=== PATIENT | female | born 1990 | race Caucasian/White ===

== ENCOUNTER 2016-08-20 10:01 | Inpatient (IN) ==
--- NOTE | 2016-08-20 10:03 | Pulmonology History & Physical ---
History of Present Illness Chief complaint: shortness of breath chest tightness severe cough outpatient tx failure History of present illness: RED De La Cruz acting as scribe for Dr. Vinny Levy. Ms. Lyles is a 26 year old /White female who was seen initially at [facility] [place] on 08/19/16 for shortness of breath, cough, severe chest tightness and congestion with inability to produce sputum, sore throat, nausea, decreased appetite, and weakness. She has been treated for influenza approximately 2 weeks ago and currently is taking Augmentin for acute sinusitis at this time. Her chest tightness and other symptoms started approximately 2-3 days before she was seen in our office. She was given IV infusion of 1L NS and 1GM Rocephin in the clinic along with a Duoneb and 0.1mg Epinephrine subq due to intractable cough due to bronchospasm shortness of breath and chest tightness. Labs and XR done in office were reviewed by lab results were unreliable due to being hemolyzed from her dehydration. Started on PO Azithromycin, Keflex, Prednisone, Singulair, Mucinex, and Tessalon Perles for cough along with Duoneb treatments PRN. We did not give steroid injection in the clinic due to nervousness and side effect from Duoneb and Epinephrine. She was instructed that if no improvement to RTC today 08/20/16 for reevaluation. She presented to clinic this morning still with chest tightness shortness of breath and cough due to bronchospasm. Cough is dry nonproductive unable to cough up sputum. Admits she had some chest pains last night not sure if due to cough or not. She did have all of her medications this morning. Duonebs feel like they open her up some but do not last long maybe a few minutes. We gave her a steroid injection in the clinic and another 0.1mg Epinephrine and still had bronchospasm and decreased air movement after these injections. She was very tearful and anxious due to condition and not improving very concerned about her breathing. Due to the severity of bronchospasm shortness of breath cough and chest tightness along with failure of multiple outpatient treatment methods decision was made to admit to inpatient for further evaluation and treatment. This was discussed with the patient and she agrees with this plan. ALLERGIES: LORTAB ROS: All other ROS noncontributory Home Medications: Other than stated above that was started on 08/19/16 she only takes home Zyrtec OTC. Past Medical History: Kidney stones, history of GERD had EGD done by Dr. Hurley in 2008 he was suspicious of Radha Garvin tear but on EGD no evidence of tear or GI bleed but did have some esophagitis with evidence of reflux, history of anxiety mostly exacerbated by job related stress last treated by Dr. Chance in 2010 not requiring treatment since then. Past Surgical History: EGD as above in [address] Hurley, 2 c-sections. Family History: Arthritis, asthma, kidney stones, defects, breast cancer, and colon polyps. 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 Chest XR at [facility] [place]/19/16 Reviewed there are increased interstitial markings bilateraly probable early left lower lung infiltrate. Labs are pending EKG pending. Allergies Allergy/AdvReac Type Severity Reaction Status Date / Time hydrocodone [From Lortab] AdvReac Vomiting Verified 08/20/16 12:27 Exam (Pulmonay) H&P - Constitutional Exam: Exam: Psych: Oriented x 3; Tearful and anxious. Acutely ill appearing. HEENT: Pupils, irises, sclera, conjunctiva, and eyelids are normal. The face is symmetrical. Lips, tongue, buccal mucosa, soft and hard palates, and phayrnx are WNL Neck: Symmetrical. Thyroid was not palpated. Lymphatics: No submandibular, cervical, or supraclavicular adenopathy Chest: Symmetrical with restricted air movement in the periphery faint/vague large airway wheeze on expiration. Severe cough with deep breathing. Breasts: Deferred CV: Regular without murmur, rub or gallop. Arterial: Carotids with a good upstroke. There is no bruit. Upper extremity pulses are palpable. Lower extremity pulses are palpable. Venous: Exam of the neck, upper, and lower extremities is normal Abd: No appreciable organomegaly, masses, tenderness, or bruit; Bowel sounds are positive x 4; The aorta was not palpated /Rectal: Deferred Extremities: No clubbing, cyanosis, or obvious DVT; no significant edema Skin: No cancerous or infectious lesions of the exposed, examined skin; the perineal area was not examined M/S: Age appropriate loss of the normal curvature of the cervical, thoracic, and lumbar spine. Neurological: Cranial nerves are intact, Long tract motor function is intact; Sensory exam was not done; gait was not tested. The remainder of the exam was noncontributory. Impression: #1 Acute bronchitis with bronchospasm #2 Severe shortness of breath and chest tightness #3 Cough related to bronchospasms #4 Early left lower lobe pneumonia, refractory to outpatient treatment #5 History of GERD not on treatment #6 See past history Plan #1 Admit for further evaluation and treatment #2 IV abx due to outpatient treatment failure #3 Inhalation therapy with duonebs QID and PRN #4 CXR, labs and EKG as ordered #5 PPI for management of GERD #6 See orders
[2016-08-20] MEDS ORDERED: ALBUTEROL/IPRATROPIUM 3 ML NEB RESP TX PRN (10:28)
[2016-08-20] MEDS ORDERED: DOCUSATE SODIUM 100 MG CAPSULE PO PRN (10:28)
[2016-08-20] MEDS ORDERED: LACTULOSE 20 GM/30 ML UDCUP PO PRN (10:28)
[2016-08-20] MEDS ORDERED: EPINEPHrine 1 MG/ML VIAL SUBCUT PRN (10:32)
--- NOTE | 2016-08-20 12:51 | EKG Report ---
Stationary ECG Study [facility] Test Date: 08/20/2016 12:51 PM Pat Name: FRANCESCO TIRADO Department: Room: 534 Gender: F Supervisor Last Model Department: : 1990 Requested by: Jason Parker Order Number: [id number] Julien MD: NEHA BHAT Intervals [place] Rate: 57 P: 86 VT: 123 QRS: 78 QRSD: 85 T: 30 QT: 368 QTc: 362 Interpretive Statements (DR RAMÍREZ STEPHENSON TO INTERP) SINUS RHYTHM Electronically Signed On 08-22-16 17:29:01 WORKFOR[employer] DEVELOPMENT SPECIALIST by NEHA BHAT [email or web address]
--- NOTE | 2016-08-20 13:42 | XRay Report ---
XR chest 2V Date: 08/20/2016 10:30 AM History: Shortness of breath Comparison: 05/09/2014 Technique: PA and lateral chest Findings: The heart is normal in size. The lungs appear minimally hyperexpanded with no infiltration. Unremarkable mediastinum and osseous structures. Impression: The lungs are overexpanded which can be seen with deep inspiration or reactive airway disease. PROCEDURE INTERPRETED AT [facility] DEPARTMENT OF RADIOLOGY Final Report Signed by: Dr. Ronda Javed
[2016-08-20] MEDS: ALBUTEROL/IPRATROPIUM 3 ML NEB RESP TX SCH ×2 (13:53→19:24)
[2016-08-20] MEDS: BENZONATATE 100 MG CAPSULE PO SCH ×2 (14:00→20:36)
[2016-08-20] MEDS: PANTOPRAZOLE 40 MG TABLET PO SCH (14:00)
[2016-08-20 14:21] LABS: Basophils % 0.1 % (0.0-0.8); Hematocrit 41.4 VOL% (35.7-47.0); Hemoglobin 14.7 GM/DL (12.0-16.0); Immature Granulocytes % 0.4 %; Immature Granulocytes Absolute 0.04 #; Lymphocytes # 0.8 10*3/uL (1.4-4.0); Lymphocytes % 8.5 % (21.3-54.2); Mean Corpuscular HGB Conc 35.5 GM/DL (32-36); Mean Corpuscular Hemoglobin 30 PG (27-34); Mean Corpuscular Volume 85.2 FL (87-102); Mean Platelet Volume 10.9 FL (9.6-12.0); Monocytes # 0.1 10*3/uL (0.11-0.8); Monocytes % 1.2 % (1.7-12.7); Neutrophils # 8.7 10*3/uL (1.4-7.4); Neutrophils % 89.8 % (38.7-73.9); Platelet Count 214 T/CUMM (130-400); Red Blood Count 4.86 MC/CUMM (3.8-5.5); Red Cell Distribution Width 11.5 % (9.3-17.3); White Blood Count 9.7 T/CUMM (4-12)
[2016-08-20] MEDS: DEXTROSE 5% NACL 0.45% 1,000 ML IV SCH (14:45)
[2016-08-20 14:49] LABS: Albumin 4.8 G/DL (3.4-5.0); Bilirubin,Total 0.7 MG/DL (0.2-1.0); Calcium 9.8 MG/DL (8.5-10.1); Magnesium 2.1 MG/DL (1.8-2.4); Osmolality,Calculated 282.1 MOS/KG (273-304); Potassium 4.7 MMOL/L (3.5-5.1); Thyroid Stimulating Hormone 0.342 uIU/ml (0.358-3.74); Total Protein 7.9 G/DL (6.4-8.3)
[2016-08-20] MEDS: MEROPENEM 1,000 MG in SODIUM CHLORIDE 0.9% 100 ML IV SCH ×2 (15:30→23:54)
[2016-08-20] MEDS ORDERED: CLORAZEPATE 3.75 MG TABLET PO PRN (16:43)
[2016-08-20 19:11] LABS: Apearance,Urine CLEAR (Clear); Bilirubin,Urine Negative (Negative); Blood, Urine Negative (Negative); Glucose,Urine (UA) Negative (Negative); Ketones,Urine Negative (Negative); Nitrite,Urine Negative (Negative); Protein,Urine Negative; RBC,Urine 1 /HPF (0-4); Squamous Epithelial Cell,Urine Occasional /HPF (0-10); Urine Color Yellow (Yellow); Urine Specific Gravity 1.013 (1.001-1.035); Urine Urobilinogen < 2.0 EU/DL (0.2-1.0); WBC,Urine 1 /HPF (0-6)
[2016-08-20] MEDS: DORNASE ALFA 2.5 MG/2.5 ML VIAL RESP TX SCH (19:24)
[2016-08-20] MEDS: ZALEPLON 5 MG CAPSULE PO PRN (23:58)
[2016-08-21] MEDS: ALBUTEROL/IPRATROPIUM 3 ML NEB RESP TX SCH ×4 (00:26→19:19)
[2016-08-21 05:04] LABS: Basophils % 0.2 % (0.0-0.8); Eosinophils % 0.1 % (0.00-10.9); Hematocrit 33.3 VOL% (35.7-47.0); Immature Granulocytes % 0.9 %; Immature Granulocytes Absolute 0.09 #; Lymphocytes # 2.6 10*3/uL (1.4-4.0); Lymphocytes % 24.9 % (21.3-54.2); Mean Corpuscular Hemoglobin 31 PG (27-34); Mean Corpuscular Volume 85.8 FL (87-102); Monocytes # 0.6 10*3/uL (0.11-0.8); Monocytes % 6.1 % (1.7-12.7); Neutrophils % 67.8 % (38.7-73.9); Platelet Count 175 T/CUMM (130-400); Red Blood Count 3.88 MC/CUMM (3.8-5.5); Red Cell Distribution Width 11.6 % (9.3-17.3); White Blood Count 10.3 T/CUMM (4-12)
[2016-08-21 05:38] LABS: Calcium 8.8 MG/DL (8.5-10.1); Magnesium 2.1 MG/DL (1.8-2.4); Osmolality,Calculated 289.7 MOS/KG (273-304)
[2016-08-21] MEDS: DORNASE ALFA 2.5 MG/2.5 ML VIAL RESP TX SCH ×2 (07:39→19:19)
[2016-08-21] MEDS: methylPREDNISolone SOD SUC 40 MG/1 ML VIAL IV SCH (08:04)
[2016-08-21] MEDS: MEROPENEM 1,000 MG in SODIUM CHLORIDE 0.9% 100 ML IV SCH ×3 (08:06→23:24)
[2016-08-21] MEDS: MONTELUKAST 10 MG TABLET PO SCH (08:08)
[2016-08-21] MEDS: PANTOPRAZOLE 40 MG TABLET PO SCH (08:08)
[2016-08-21] MEDS: CETIRIZINE 10 MG TABLET PO SCH (08:08)
[2016-08-21] MEDS: BENZONATATE 100 MG CAPSULE PO SCH ×3 (08:08→21:31)
--- NOTE | 2016-08-21 13:32 | Pulmonology Progress Note ---
Pulmonary - PN: Subj Interval history: This 26-year-old white female was admitted from Dr. Levy's office yesterday with an exacerbation of asthma. She does not have any previous history of asthma. She was felt to have acute asthmatic bronchitis. She is on intravenous steroids and nebulized bronchodilators as well as getting antibiotics. This morning she is feeling better. She still coughing and clearing her throat. Room air O2 sat is 100%. Will start reducing her steroids. Exam (Progress Note) - Constitutional Vitals: Period Temp Pulse Resp BP Sys/Grimes Pulse Ox Last 24 Hr 97.4 F-99.9 F 59-92 16-19 98-110/54-61 92-100 Exam: Patient's alert oriented anxious. Vital signs normal. Pupils react to light. Throat is clear. Neck supple no bruits. Chest shows prolonged expiratory phase but no active wheezing. Heart normal rate and rhythm no murmurs. Abdomen soft no masses. Extremities no clubbing cyanosis edema. Calves nontender. Results - Labs CBC & BMP: 08/21/16 04:15 08/21/16 04:15 Lab Results: I have reviewed the past 24 hour labs - Diagnostic Findings Procedure: Chest x-ray: image reviewed by me (Lungs are clear) Assessment and Plan (1) Bronchitis with bronchospasm Status: Acute Assessment and plan: It appears that she has acute asthmatic bronchitis. She does not have a history of asthma in the past. It remains to be seen whether she has chronic problems with this. She is improved today. Will reduce her steroids. She does have a good bit of throat clearing. Current Visit: Yes
[2016-08-21] MEDS: DEXTROSE 5% NACL 0.45% 1,000 ML IV SCH (14:09)
[2016-08-21] MEDS: ZALEPLON 5 MG CAPSULE PO PRN (21:31)
[2016-08-22] MEDS: ALBUTEROL/IPRATROPIUM 3 ML NEB RESP TX SCH ×4 (00:01→20:48)
[2016-08-22] MEDS: DEXTROSE 5% NACL 0.45% 1,000 ML IV SCH ×2 (02:55→15:30)
[2016-08-22] MEDS: MEROPENEM 1,000 MG in SODIUM CHLORIDE 0.9% 100 ML IV SCH ×3 (06:52→23:59)
[2016-08-22] MEDS: DORNASE ALFA 2.5 MG/2.5 ML VIAL RESP TX SCH ×2 (08:08→20:55)
[2016-08-22] MEDS: PANTOPRAZOLE 40 MG TABLET PO SCH (08:29)
[2016-08-22] MEDS: BENZONATATE 100 MG CAPSULE PO SCH ×3 (08:29→20:40)
[2016-08-22] MEDS: methylPREDNISolone SOD SUC 40 MG/1 ML VIAL IV SCH (08:29)
[2016-08-22] MEDS: MONTELUKAST 10 MG TABLET PO SCH (08:29)
[2016-08-22] MEDS: CETIRIZINE 10 MG TABLET PO SCH (08:31)
--- NOTE | 2016-08-22 11:27 | Pulmonology Progress Note ---
Pulmonary - PN: Subj Interval history: This 26-year-old white female was admitted from Dr. Levy's office yesterday with an exacerbation of asthma. She does not have any previous history of asthma. She was felt to have acute asthmatic bronchitis. She is on intravenous steroids and nebulized bronchodilators as well as getting antibiotics. This morning she is feeling better. She still coughing and clearing her throat. Room air O2 sat is 100%. Will start reducing her steroids. 08/22/2016 patient feeling much better. She is only on 20 mg a day of Solu- Medrol. Advised she will need to stay [address] Levy tomorrow to address long-term plans for her bronchospastic disease. This apparently is not a terminologist history. Exam (Progress Note) - Constitutional Vitals: Period Temp Pulse Resp BP Sys/Grimes Pulse Ox Last 24 Hr 97.3 F-98.4 F 60-84 16-20 104-122/59-68 98-100 Exam: Patient's alert oriented anxious. Vital signs normal. Pupils react to light. Throat is clear. Neck supple no bruits. Chest shows prolonged expiratory phase but no active wheezing. Heart normal rate and rhythm no murmurs. Abdomen soft no masses. Extremities no clubbing cyanosis edema. Calves nontender. Mental change from yesterday. Results - Labs CBC & BMP: 08/21/16 04:15 08/21/16 04:15 Lab Results: I have reviewed the past 24 hour labs Assessment and Plan (1) Bronchitis with bronchospasm Status: Acute Assessment and plan: It appears that she has acute asthmatic bronchitis. She does not have a history of asthma in the past. It remains to be seen whether she has chronic problems with this. She is improved today. Will reduce her steroids. She does have a good bit of throat clearing. 08/22/2016 we discussed yesterday whether or not she has asthma. She has not had recurrent episodes of this. This could be acute bronchitis or asthmatic bronchitis more likely. Current Visit: Yes
[2016-08-23] MEDS: ALBUTEROL/IPRATROPIUM 3 ML NEB RESP TX SCH ×2 (01:41→07:17)
[2016-08-23] MEDS: DORNASE ALFA 2.5 MG/2.5 ML VIAL RESP TX SCH (07:25)
[2016-08-23] MEDS: MEROPENEM 1,000 MG in SODIUM CHLORIDE 0.9% 100 ML IV SCH (07:38)
[2016-08-23] MEDS: PANTOPRAZOLE 40 MG TABLET PO SCH (08:10)
[2016-08-23] MEDS: BENZONATATE 100 MG CAPSULE PO SCH (08:10)
[2016-08-23] MEDS: MONTELUKAST 10 MG TABLET PO SCH (08:10)
[2016-08-23] MEDS: CETIRIZINE 10 MG TABLET PO SCH (08:10)
[2016-08-23] MEDS: methylPREDNISolone SOD SUC 40 MG/1 ML VIAL IV SCH (08:11)
--- NOTE | 2016-08-23 10:32 | Pulmonology Progress Note ---
Pulmonary - PN: Subj Interval history: Jason Parker, ANP-BC, GNP-BC, acting as scribe for Dr. Vinny Levy Mrs. Lyles was seen today along with Caterina Vizcarra RN. This is a 26 year old white female who was seen on two occasions last week by Caterina Latif NP, [place] [facility] [place] She was acutely short of breath with significant wheezing. Despite aggressive outpatient treatment she was an outpatient treatment failure. She was admitted and started on IV Solumedrol and antibiotics as well as inhalation therapy. Her CXR never showed an infiltrate and over time her shortness of breath and wheezing has resolved. She states she feels markedly better today. Medications have been reviewed. We will send her home with a prescription for Stiolto. We discussed this at length with her his morning. Labs have been reviewed. No new labs were drawn today. Exam (Progress Note) - Constitutional Vitals: Period Temp Pulse Resp BP Sys/Grimes Pulse Ox Last 24 Hr 98.0 F-98.6 F 61-85 18-20 99-127/47-74 97-100 Exam: Chest is wheeze free Heart no gallop Abd is nontender and nondistended; BS positive x 4 Ext with nothing to suggest acute DVT Psych oriented x 3 Neuro long tract motor function is intact Plan: She has now met maximum hospital benefit and will be discharged home. Please see the discharge note for more information. Results - Labs CBC & BMP: 08/21/16 04:15 08/21/16 04:15 Specialty Discharge - Follow Up or Referrals
--- NOTE | 2016-08-23 10:35 | Discharge Summary ---
Hospital Course - Hospital Course Hospital Course: Jason Parker, ANP-BC, GNP-BC, acting as scribe for Dr. Vinny Levy Mrs. Lyles is a 26 year old /White female who was seen initially at [facility] [place] on 08/19/16 for shortness of breath, cough, severe chest tightness and congestion with inability to produce sputum, sore throat, nausea, decreased appetite, and weakness. She had been treated for influenza approximately 2 weeks prior to admission and was taking Augmentin for acute sinusitis at the time of admission. Her chest tightness and other symptoms started approximately 2-3 days before she was seen in our office. She was given an IV infusion of 1L NS and 1GM Rocephin in the clinic along with a Duoneb and 0.1mg Epinephrine subq due to intractable cough secondary to bronchospasm shortness of breath and chest tightness. Labs and XR done in office were reviewed by lab results were unreliable due to being hemolyzed from her dehydration. She was started on PO Azithromycin, Keflex, Prednisone, Singulair, Mucinex, and Tessalon Perles for cough along with Duoneb treatments PRN. We did not give steroid injection in the clinic due to nervousness and side effect from Duoneb and Epinephrine. She was instructed that if no improvement to return to our clinic on 08/20/16 for reevaluation. She presented to clinic the morning of admission still with chest tightness, shortness of breath, and cough due to bronchospasm. The cough was dry and nonproductive. She was unable to cough up sputum. We gave her a steroid injection in the clinic and another 0.1mg Epinephrine, but she still had bronchospasm and decreased air movement after these injections. She was very tearful and anxious due to her condition and the fact that she was not improving. She was very concerned about her breathing. Due to the severity of the bronchospasm, shortness of breath, cough, and chest tightness along with failure of multiple outpatient treatment methods, the decision was made to admit to inpatient for further evaluation and treatment. She was admitted and started on IV Solumedrol and antibiotics as well as inhalation therapy. Her CXR never showed an infiltrate and over time her shortness of breath and wheezing has resolved. She states she feels markedly better today. Sputum for Gram stain, culture, and sensitivity was ordered at admission however, the patient never produced a sputum for testing. We are going to start Stiolto at discharge and will follow her up in our clinic in two weeks. Next, the patient has never had any respiratory issues and most likely suffered respiratory injury secondary to her recent influenza illness and sinusitis. Blood cultures are negative thus far. At the time of discharge, white count is 10,300 with 67.8% segs, 24.9% lymphs, and 6.1% monos; H&H 12.0/33.3 with Y normal indices and normal red blood cell distribution width; platelet count 175,000; creatinine 0.80, BUN 12, sodium 145 , potassium 4.0, magnesium 2.1; liver function tests within normal limits; calcium 8.8, albumin 4.8, total protein 7.9; TSH was low at 0.342 however free T4 was normal at 1.09; urinalysis showed no evidence of infection. For more information regarding Mrs. Lyles's past medical history, surgical history, family history, social history, admit labs, admit x-rays and admit exam , please see the admission note dated 08/20/2016. Impression: #1 Acute bronchitis with bronchospasm which have been refractory to outpatient treatment; resolved #2 Severe shortness of breath and chest tightness secondary to #1: Resolved #3 Cough related to bronchospasms; resolved #4 Early left lower lobe pneumonia suspected but not found #5 History of GERD #6 See past history Plan: Stiolto 2 puffs once a day, Tessalon 200 mg 3 times daily as needed cough , Zyrtec 10 mg daily, Mucinex 600 mg twice daily, Singulair 10 mg daily, Protonix 40 mg or Omeprazole 20 mg daily, and Prednisone 10 mg daily for 5 days then 10 mg every other day for 5 days. She will be scheduled to follow-up with Caterina Latif, nurse practitioner, in approximately 2 weeks. She can be seen sooner if needed. Specialty Discharge - Follow Up or Referrals Follow up with: Caterina Latif CFNP [Advanced Practice Nurse] - 2 Weeks Discharge Plan - Discharge Data Disposition: Disch To Home/Self Care Condition at Discharge: Stable Discharge Diet: regular diet Activity: resume usual activities as tolerated - Discharge Medications New Tiotropium Br/Olodaterol HCl [Stiolto Respimat Inhal [place]] 2.5 mcg IH DIRECTED #5 mist.inhal predniSONE TAB [PredniSONE] 10 mg PO DIRECTED #10 tablet Guaifenesin [Guaifenesin ER] 600 mg PO BID #60 tab.er.12h Pantoprazole Tab [Protonix Tab] 40 mg PO DAILY #30 tablet Continue Benzonatate [Tessalon] 200 mg PO TID PRN PRN Reason: Cough Montelukast Tab [Singulair Tab] 10 mg PO DAILY Cetirizine Tab [ZyrTEC Tab] 10 mg PO DAILY Discontinued Azithromycin Tab [Zithromax Tab] 250 mg PO DAILY guaiFENesin/DM ER 600-30 [Mucinex Dm 600-30 MG] 1 tablet PO BID cephALEXin [Keflex] 500 mg PO Q6HR - Follow Up or Referral - Forms/Instructions Instructions: Acute Bronchitis (DC), Bronchospasm (DC), Pneumonia (DC) Exam - Constitutional Vitals: Period Temp Pulse Resp BP Sys/Grimes Pulse Ox Last 24 Hr 98.0 F-98.6 F 61-85 18-20 99-127/47-74 97-100 Discharge Results Procedures and tests throughout hospitalization: Pending Orders 08/20/16 10:31 Sputum Culture and Gram Stain Routine 08/20/16 13:47 Blood Culture Routine Legionella Pneumophilia Ab Routine Labs on day of discharge: Preliminary micro results at discharge 08/20/16 13:47 Blood Culture - Preliminary Blood No growth at 1 day 08/20/16 13:47 Blood Culture - Preliminary Blood No growth at 1 day DS: Provider Date of admission: 08/20/16 12:04 Primary care physician: Vinny Levy MD Attending physician on admission: Vinny Levy MD Consults: 08/20/16 14:52 Consult to Dietitian [CONS] Routine Reason for Dietitian: Other Consult Comment: weight loss Discharging clinician: LEXII Colin
[2016-08-23 11:55] VITALS: BP 102/66
== END 2016-08-23 13:06 | disposition home or self-care (01) | DRG 203 ==
LOC: N.5E 12:04
PROVIDERS: ADMIT Internal Medicine Pulmonary Disease; ATTEND Internal Medicine Pulmonary Disease